=== PATIENT | male | born 1995 | race African-American/Black ===

== ENCOUNTER 2017-09-01 09:33 | Emergency (ER) | payer OTHER ==
[~2017-09-01] VITALS: Ht 180.3 cm; Wt 100.7 kg
[~2017-09-01 09:33] MED LIST: NAPR500 PO
[2017-09-01 09:39] VITALS: BP 161/72; PULSE 63; RESP 16; TEMP 98.1; O2SAT 99
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
[2017-09-01 10:15] LABS: AUTOMATED NEUTROPHIL # 3.3 TH/MM3 (1.8-7.7); BASOPHIL % 0.6 % (0.0-2.0); EOSINOPHIL # 0.4 TH/MM3 (0-0.4); HEMATOCRIT 39.4 % (39.0-51.0); HEMOGLOBIN 13.2 GM/DL (13.0-17.0); LYMPH % 25.6 % (9.0-44.0); LYMPHOCYTE # 1.4 TH/MM3 (1.0-4.8); MEAN CELL VOLUME 90.8 FL (80.0-100.0); MEAN CORPUSCULAR HEMOGLOBIN 30.5 PG (27.0-34.0); MEAN CORPUSCULAR HGB CONC 33.6 % (32.0-36.0); MEAN PLATELET VOLUME 7.7 FL (7.0-11.0); MONO % 6.3 % (0.0-8.0); MONOCYTE # 0.3 TH/MM3 (0-0.9); NEUT % 60.5 % (16.0-70.0); PLATELET COUNT 263 TH/MM3 (150-450); RED BLOOD COUNT 4.34 MIL/MM3 (4.50-5.90); RED CELL DISTRIBUTION WIDTH 12.2 % (11.6-17.2); WHITE BLOOD COUNT 5.4 TH/MM3 (4.0-11.0)
[2017-09-01 10:29] LABS: CHLORIDE 102 MEQ/L (98-107); SODIUM (NA) 136 MEQ/L (136-145)
[2017-09-01 10:31] LABS: CALCIUM 8.8 MG/DL (8.5-10.1)
[2017-09-01 10:32] LABS: BICARBONATE 28.8 MEQ/L (21.0-32.0); BLOOD UREA NITROGEN 9 MG/DL (7-18); GLUCOSE,RANDOM 93 MG/DL (74-106)
[2017-09-01 10:35] LABS: CREATININE 0.77 MG/DL (0.60-1.30); GLOMERULAR FILTRATION RATE 152 ML/MIN (>89)
[2017-09-01 10:40] LABS: TROPONIN I LESS THAN 0.02 NG/ML (0.02-0.05)
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
[2017-09-01 11:02] VITALS: BP 139/64
--- NOTE | 2017-09-01 12:48 | EKG ---
Date Performed: 09/01/2017 Time Performed: 10:12:42 PTAGE: 22 years EKG: SINUS BRADYCARDIA WITH SINUS ARRHYTHMIA BORDERLINE ECG NO PREVIOUS TRACING DOCTOR: Madi Perez Interpretating Date/Time 09/01/2017 12:46:39
== END 2017-09-01 11:04 | disposition home or self-care (01) ==
LOC: PHED 09:33
DX: T75.4XXA Electrocution, initial encounter (principal); R94.31 Abnormal electrocardiogram [ECG] [EKG]; W86.1XXA Exposure to industrial wiring, appliances and electrical machinery, initial encounter; Y99.0 Civilian activity done for income or pay
CPT/HCPCS: 70450; 80048; 82550; 84484; 85025; 93005; 99285